=== PATIENT | female | born 1985 | race American Indian/Alaskan Native ===

== ENCOUNTER 2016-05-29 20:49 | Emergency (ER) | payer MEDICAID ==
[2016-05-29 23:39] LABS: Bacteria,Urine 2+ /HPF (Negative); Bilirubin,Urine NEG (Negative); Blood,Urine NEG (Negative); Ketones,Urine TR mg/dL (Negative); Leukocyte Esterase,Urine MOD (Negative); Mucus,Urine 3+ /HPF; Nitrite,Urine NEG (Negative); Protein,Urine <15 mg/dL mg/dL (Negative)
--- NOTE | 2016-05-30 02:11 | Emergency Department Report ---
HPI - General Chief Complaint: Upper Respiratory Infection Time Seen by Provider: 05/30/16 01:46 - HPI HPI: Patient is a 31-year-old female who presents to the ED complaining of cough congestion and generalized body aches that started this morning. Patient states that she woke up this morning with some throat pain and fever. Patient states she has taken 2 tab of Aleve earlier today that had some minor relief. Patient denies chills/abdominal pain/diarrhea/chest breath sounds chest pain/ dizziness ED Past Medical Hx - Past Medical History Previous Medical History?: No Hx Hypertension: No Hx Diabetes: No Hx Deep Vein Thrombosis: No Hx Renal Disease: No Hx Sickle Cell Disease: No Hx Seizures: No Hx Asthma: No Hx HIV: No - Social History Smoking Status: Never Smoker Substance Use Type: None - Medications Home Medications: Home Medications Medication Instructions Recorded Confirmed Last Taken Type Vit#96/Ferrous Fum/FA 02/14/13 Unknown History [ Tablet] Permethrin 5% [Acticin 5% CREAM] 60 gm TP ONCE #1 tube 03/31/13 Unknown Rx diphenhydrAMINE [Benadryl] 25 mg PO Q6HR PRN #30 capsule 03/31/13 Unknown Rx Loratadine [Claritin] 10 mg PO QDAY #10 tablet 06/19/14 Unknown Rx hydrOXYzine PAMOATE [Vistaril] 50 mg PO Q8H PRN #10 capsule 06/19/14 Unknown Rx predniSONE [Deltasone] 40 mg PO QDAY #10 tab 06/19/14 Unknown Rx Ibuprofen [Motrin] 600 mg PO Q8H PRN #30 tablet 06/21/14 Unknown Rx methOCARBAMOL [Robaxin] 500 mg PO BID #10 tab 06/21/14 Unknown Rx traMADol [Ultram] 50 mg PO Q6HR PRN #14 tablet 06/21/14 Unknown Rx Acetaminophen [Acetaminophen TAB] 650 mg PO Q8H #30 tablet 05/30/16 Unknown Rx Amoxicillin/K Clav Tab [Augmentin 1 each PO BID #14 tablet 05/30/16 Unknown Rx 875MG TAB] Pnv Cmb#21/Iron/Folic Acid 1 each PO DAILY #30 tablet 05/30/16 Unknown Rx [ Complete Caplet] guaiFENesin [Robitussin] 200 mg PO Q6HR #20 tablet 05/30/16 Unknown Rx ED Review of Systems ROS: Stated complaint: BILATERAL LEG PAIN,SHER Other details as noted in HPI Comment: All other systems reviewed and negative Constitutional: denies: chills, fever Eyes: denies: eye pain, eye discharge, vision change ENT: denies: ear pain, throat pain Respiratory: denies: cough, shortness of breath, wheezing Cardiovascular: denies: chest pain, palpitations Endocrine: no symptoms reported Gastrointestinal: denies: abdominal pain, nausea, vomiting, diarrhea, constipation, hematochezia Genitourinary: frequency. denies: urgency, dysuria, hematuria, discharge, abnormal menses Musculoskeletal: denies: back pain, joint swelling, arthralgia Skin: denies: rash, lesions Neurological: denies: headache, weakness, numbness, paresthesias, confusion, abnormal gait, vertigo Psychiatric: denies: anxiety, depression Hematological/Lymphatic: denies: easy bleeding, easy bruising Physical Exam - Physical Exam Vital Signs: Vital Signs 05/29/16 21:51 Temperature 99.0 F Pulse Rate 93 H Respiratory 18 Rate Blood Pressure 116/70 O2 Sat by Pulse 98 Oximetry Physical Exam: GENERAL: Alert and oriented x3, no apparent distress, Normal Gait, atraumatic. HEAD: Head is normocephalic and a-traumatic. EYES: Extra ocular muscles are intact. Pupils are equal, round, and reactive to light and accommodation. EARS: symetrical, atraumatic, gross auditory nml bilaterally. NOSE: Nose symetrical, Nontender,Nares appeared normal. MOUTH:Mouth is well hydrated and without lesions. Tonsils nonerythematous , moderately swollen, positive exudates. Uvula midline, Tongue not elevated. Mucous membranes are moist. Posterior pharynx positive exudate . no lesions. Patent airways. NECK: Supple. Non edematous, No carotid bruits. No lymphadenopathy or thyromegaly. LUNGS: Symetrical with respiration, No wheezing, no rales or crackles, CTAB. HEART: S1, S2 present, regular rate and rhythm without murmur, no rubs, no gallops. ABDOMEN: No organomegaly was noted,Positive bowel sounds, soft, and non- distended. . Nontender to palpation on all Quadrants, NO CVA tenderness. EXTREMITIES/MUSCULOSKELETAL: No cyanosis, clubbing, rash, lesions or edema. Full ROM bilaterally. UE/LE Pulses 2+ bilaterally. LE and UE 5+ strength bilaterally NEUROLOGIC: No focal Deficit, Cranial nerves II through XII are grossly intact. No loss of sensation, PSYCHIATRIC: Mood is congruent with affect, denies suicidal or homicidal ideations. SKIN: Warm and dry, No lesions, No ulceration or induration present. ED Course Vital Signs 05/29/16 21:51 Temperature 99.0 F Pulse Rate 93 H Respiratory 18 Rate Blood Pressure 116/70 O2 Sat by Pulse 98 Oximetry ED Medical Decision Making - Medical Decision Making 31-year-old female presents with UTI/incidental finding Urinalysis shows +2+ bacteria 3+ urine mucus elevated WBC. test positive. Rapid strep test negative. Influenza A and B negative Discussed findings with patient. Discussed [id number] symptomatic relief. Discussed referral to [facility]. Patient refused bHCG quantitative. Patient states she is not keeping the baby and does not want any further tests. Vitals signs stable. Patient is in no acute or respiratory distress. Discussed medication antibiotic, cough suppressant and Tylenol Critical care attestation.: If time is entered above; I have spent that time in minutes in the direct care of this critically ill patient, excluding procedure time. ED Disposition Clinical Impression: Incidental UTI (urinary tract infection) Qualifiers: Urinary tract infection type: acute cystitis Hematuria presence: with hematuria Qualified Code(s): N30.01 - Acute cystitis with hematuria Disposition: DISCHARGED TO HOME OR SELFCARE Is pt being admited?: No Does the pt Need Aspirin: No Condition: Stable Instructions: (ED), Urinary Tract Infection in Women (ED), Upper Respiratory Infection (ED) Prescriptions: Acetaminophen [Acetaminophen TAB] 650 mg PO Q8H #30 tablet Amoxicillin/K Clav Tab [Augmentin 875MG TAB] 1 each PO BID #14 tablet guaiFENesin [Robitussin] 200 mg PO Q6HR #20 tablet Pnv Cmb#21/Iron/Folic Acid [ Complete Caplet] 1 each PO DAILY #30 tablet Referrals: PRIMARY CARE, [Primary Care Provider] - 3-5 Days ROLY MOREIRA MD [Referring] - 3-5 Days LUCI HAND MD [Referring] - 3-5 Days [facility] [Outside] - 3-5 Days [facility] [Outside] - 3-5 Days [facility] [Outside] - 3-5 Days Time of Disposition: 02:24
[2016-05-30] MEDS ORDERED: ROBITUSSIN PO ONE (02:18)
[2016-05-30] MEDS ORDERED: TYLENOL PO ONE (02:18)
[2016-05-30] MEDS ORDERED: AUGMENTIN 875 MG PO ONE (02:19)
[2016-05-30 04:48] VITALS: BP 116/74
== END 2016-05-30 02:50 | disposition home or self-care (01) ==
LOC: ED 20:49
DX: N30.01 Acute cystitis with hematuria (principal); Z33.1 Pregnant state, incidental
CPT/HCPCS: 81001; 81025; 87116; 87400; 87430; 99283

== ENCOUNTER 2016-10-13 02:37 | Emergency (ER) | payer MEDICAID ==
[2016-10-13 03:47] VITALS: BP 113/78
[2016-10-13] MEDS ORDERED: BOOSTRIX IM ONE (05:37)
--- NOTE | 2016-10-13 05:38 | Emergency Department Report ---
- General Chief complaint: Skin/Abscess/Foreign Body Stated complaint: BOTTOM LIP SORE Time Seen by Provider: 10/13/16 05:34 Source: patient Mode of arrival: Ambulatory Limitations: No Limitations - History of Present Illness Initial comments: This is a 31-year-old female nontoxic, well nourished in appearance, no acute signs of distress but presents to the ED complaining of pain and swelling to the bottom lip. Patient stated 2 days ago she had a scab that she was taking with a pin. Patient denies any trauma. Denies pus or drainage. Denies any chest pain, shortness of breath, fever, chills, headache, nausea or vomiting. Denies any allergies or past medical history. MD complaint: other (abrasion with slight swelling to bottom lip) -: Gradual, days(s) (2) Tetanus Up to Date: no Location: face (bottom lip) Severity: mild Severity scale (0 -10): 4 Quality: aching Consistency: constant Improves with: none Worsens with: none Context: none Associated symptoms: denies other symptoms Treatments Prior to Arrival: none - Related Data Home Medications Medication Instructions Recorded Confirmed Last Taken Vit#96/Ferrous Fum/FA 02/14/13 Unknown [ Tablet] Previous Rx's Medication Instructions Recorded Last Taken Type Permethrin 5% [Acticin 5% CREAM] 60 gm TP ONCE #1 tube 03/31/13 Unknown Rx diphenhydrAMINE [Benadryl] 25 mg PO Q6HR PRN #30 capsule 03/31/13 Unknown Rx Loratadine [Claritin] 10 mg PO QDAY #10 tablet 06/19/14 Unknown Rx hydrOXYzine PAMOATE [Vistaril] 50 mg PO Q8H PRN #10 capsule 06/19/14 Unknown Rx predniSONE [Deltasone] 40 mg PO QDAY #10 tab 06/19/14 Unknown Rx Ibuprofen [Motrin] 600 mg PO Q8H PRN #30 tablet 06/21/14 Unknown Rx methOCARBAMOL [Robaxin] 500 mg PO BID #10 tab 06/21/14 Unknown Rx traMADol [Ultram] 50 mg PO Q6HR PRN #14 tablet 06/21/14 Unknown Rx Acetaminophen [Acetaminophen TAB] 650 mg PO Q8H #30 tablet 05/30/16 Unknown Rx Amoxicillin/K Clav Tab [Augmentin 1 each PO BID #14 tablet 05/30/16 Unknown Rx 875MG TAB] Pnv Cmb#21/Iron/Folic Acid 1 each PO DAILY #30 tablet 05/30/16 Unknown Rx [ Complete Caplet] guaiFENesin [Robitussin] 200 mg PO Q6HR #20 tablet 05/30/16 Unknown Rx Amoxicillin/K Clav Tab [Augmentin 1 each PO Q12HR #20 tablet 10/13/16 Unknown Rx 500 MG TAB] Allergies Allergy/AdvReac Type Severity Reaction Status Date / Time No Known Allergies Allergy Unverified 02/14/13 15:48 Abscess Boil HPI - HPI Chief Complaint: Skin/Abscess/Foreign Body Stated Complaint: BOTTOM LIP SORE Time Seen by Provider: 10/13/16 05:34 Home Medications: Home Medications Medication Instructions Recorded Confirmed Last Taken Vit#96/Ferrous Fum/FA 02/14/13 Unknown [ Tablet] Previous Rx's Medication Instructions Recorded Last Taken Type Permethrin 5% [Acticin 5% CREAM] 60 gm TP ONCE #1 tube 03/31/13 Unknown Rx diphenhydrAMINE [Benadryl] 25 mg PO Q6HR PRN #30 capsule 03/31/13 Unknown Rx Loratadine [Claritin] 10 mg PO QDAY #10 tablet 06/19/14 Unknown Rx hydrOXYzine PAMOATE [Vistaril] 50 mg PO Q8H PRN #10 capsule 06/19/14 Unknown Rx predniSONE [Deltasone] 40 mg PO QDAY #10 tab 06/19/14 Unknown Rx Ibuprofen [Motrin] 600 mg PO Q8H PRN #30 tablet 06/21/14 Unknown Rx methOCARBAMOL [Robaxin] 500 mg PO BID #10 tab 06/21/14 Unknown Rx traMADol [Ultram] 50 mg PO Q6HR PRN #14 tablet 06/21/14 Unknown Rx Acetaminophen [Acetaminophen TAB] 650 mg PO Q8H #30 tablet 05/30/16 Unknown Rx Amoxicillin/K Clav Tab [Augmentin 1 each PO BID #14 tablet 05/30/16 Unknown Rx 875MG TAB] Pnv Cmb#21/Iron/Folic Acid 1 each PO DAILY #30 tablet 05/30/16 Unknown Rx [ Complete Caplet] guaiFENesin [Robitussin] 200 mg PO Q6HR #20 tablet 05/30/16 Unknown Rx Amoxicillin/K Clav Tab [Augmentin 1 each PO Q12HR #20 tablet 10/13/16 Unknown Rx 500 MG TAB] Allergies/Adverse Reactions: Allergies Allergy/AdvReac Type Severity Reaction Status Date / Time No Known Allergies Allergy Unverified 02/14/13 15:48 ED Review of Systems ROS: Stated complaint: BOTTOM LIP SORE Other details as noted in HPI Constitutional: denies: chills, fever Eyes: denies: eye pain, eye discharge, vision change ENT: denies: ear pain, throat pain Respiratory: denies: cough, shortness of breath, wheezing Cardiovascular: denies: chest pain, palpitations Endocrine: no symptoms reported Gastrointestinal: denies: abdominal pain, nausea, diarrhea Genitourinary: denies: urgency, dysuria, discharge Musculoskeletal: denies: back pain, joint swelling, arthralgia Skin: denies: rash, lesions Neurological: denies: headache, weakness, paresthesias Psychiatric: denies: anxiety, depression Hematological/Lymphatic: denies: easy bleeding, easy bruising ED Past Medical Hx - Past Medical History Previous Medical History?: No Hx Hypertension: No Hx Diabetes: No Hx Deep Vein Thrombosis: No Hx Renal Disease: No Hx Sickle Cell Disease: No Hx Seizures: No Hx Asthma: No Hx HIV: No - Surgical History Past Surgical History?: No - Social History Smoking Status: Current Every Day Smoker Substance Use Type: None - Medications Home Medications: Home Medications Medication Instructions Recorded Confirmed Last Taken Type Vit#96/Ferrous Fum/FA 02/14/13 Unknown History [ Tablet] Permethrin 5% [Acticin 5% CREAM] 60 gm TP ONCE #1 tube 03/31/13 Unknown Rx diphenhydrAMINE [Benadryl] 25 mg PO Q6HR PRN #30 capsule 03/31/13 Unknown Rx Loratadine [Claritin] 10 mg PO QDAY #10 tablet 06/19/14 Unknown Rx hydrOXYzine PAMOATE [Vistaril] 50 mg PO Q8H PRN #10 capsule 06/19/14 Unknown Rx predniSONE [Deltasone] 40 mg PO QDAY #10 tab 06/19/14 Unknown Rx Ibuprofen [Motrin] 600 mg PO Q8H PRN #30 tablet 06/21/14 Unknown Rx methOCARBAMOL [Robaxin] 500 mg PO BID #10 tab 06/21/14 Unknown Rx traMADol [Ultram] 50 mg PO Q6HR PRN #14 tablet 06/21/14 Unknown Rx Acetaminophen [Acetaminophen TAB] 650 mg PO Q8H #30 tablet 05/30/16 Unknown Rx Amoxicillin/K Clav Tab [Augmentin 1 each PO BID #14 tablet 05/30/16 Unknown Rx 875MG TAB] Pnv Cmb#21/Iron/Folic Acid 1 each PO DAILY #30 tablet 05/30/16 Unknown Rx [ Complete Caplet] guaiFENesin [Robitussin] 200 mg PO Q6HR #20 tablet 05/30/16 Unknown Rx Amoxicillin/K Clav Tab [Augmentin 1 each PO Q12HR #20 tablet 10/13/16 Unknown Rx 500 MG TAB] ED Physical Exam - General Limitations: No Limitations General appearance: alert, in no apparent distress - Head Head exam: Present: atraumatic, normocephalic, normal inspection - Eye Eye exam: Present: normal appearance, PERRL, EOMI. Absent: scleral icterus, conjunctival injection, nystagmus, periorbital swelling, periorbital tenderness - ENT ENT exam: Present: normal exam, normal orophraynx, mucous membranes moist, TM's normal bilaterally, normal external ear exam - Neck Neck exam: Present: normal inspection, full ROM. Absent: tenderness, meningismus, lymphadenopathy, thyromegaly - Respiratory Respiratory exam: Present: normal lung sounds bilaterally. Absent: respiratory distress, wheezes, rales, rhonchi, stridor, chest wall tenderness, accessory muscle use, decreased breath sounds, prolonged expiratory - Cardiovascular Cardiovascular Exam: Present: regular rate, normal rhythm. Absent: systolic murmur, diastolic murmur, rubs, gallop - GI/Abdominal GI/Abdominal exam: Present: soft, normal bowel sounds - Rectal Rectal exam: Present: deferred - Extremities Exam Extremities exam: Present: normal inspection, full ROM, normal capillary refill. Absent: tenderness, pedal edema, joint swelling, calf tenderness - Back Exam Back exam: Present: normal inspection, full ROM. Absent: tenderness, CVA tenderness (R), CVA tenderness (L), muscle spasm, paraspinal tenderness, vertebral tenderness, rash noted - Neurological Exam Neurological exam: Present: alert, oriented X3, CN II-XII intact, normal gait, reflexes normal - Psychiatric Psychiatric exam: Present: normal affect, normal mood - Skin Skin exam: Present: warm, dry, intact, normal color, other (lesion with slight swelling her bottom lip. No posterior drainage. No fluctuance present. Nontender touch.). Absent: rash ED Course Vital Signs 10/13/16 10/13/16 03:45 03:51 Temperature 98.5 F 98.5 F Pulse Rate 67 67 Respiratory 18 18 Rate Blood Pressure 113/78 Blood Pressure 113/78 [Right] O2 Sat by Pulse 100 100 Oximetry - Reevaluation(s) Reevaluation #1: 10/13/16 05:39 Patient is able speak full sentences with no signs of distress. ED Medical Decision Making - Medical Decision Making 31-year-old female that is hemodynamically stable and examined myself. Patient was treated with Augmentin 10 days. Patient was instructed to follow-up with her primary care doctor and to observe symptoms of swelling, pus, fever, chills , headache, stiff neck, nausea, vomiting, chest pain, or shortness of breath and if the symptoms are present return to emergency room as was possible. At time time of discharge, the patient does not seem toxic or ill in appearance. No acute signs of distress noted. Patient agrees to discharge treatment plan of care. No further questions noted by the patient. Critical care attestation.: If time is entered above; I have spent that time in minutes in the direct care of this critically ill patient, excluding procedure time. ED Disposition Clinical Impression: Abrasion Disposition: DC-01 TO HOME OR SELFCARE Is pt being admited?: No Does the pt Need Aspirin: No Condition: Stable Instructions: Abrasion (ED), Amoxicillin/Clavulanate Potassium (By mouth) Additional Instructions: follow-up with your primary care doctor and observe symptoms of swelling, pus, fever, chills, headache, stiff neck, nausea, vomiting, chest pain, or shortness of breath and if the symptoms are present return to emergency room as was possible. Take full course of antibiotics prescribed. Prescriptions: Amoxicillin/K Clav Tab [Augmentin 500 MG TAB] 1 each PO Q12HR #20 tablet Referrals: PRIMARY MD MURRAY [Referring] - 3-5 Days JENIFER WEBER MD [Staff Physician] - 3-5 Days [facility] [place] [Outside] - 3-5 Days [facility] [place] [Outside] - 3-5 Days Forms: Work/School Release Form(ED)
== END 2016-10-13 05:45 | disposition home or self-care (01) ==
LOC: ED 02:37
DX: S00.511A Abrasion of lip, initial encounter (principal); F17.200 Nicotine dependence, unspecified, uncomplicated; W22.8XXA Striking against or struck by other objects, initial encounter; Y93.89 Activity, other specified; Y99.8 Other external cause status; Y92.89 Other specified places as the place of occurrence of the external cause
CPT/HCPCS: 90471; 90715

== ENCOUNTER 2016-12-25 08:23 | Emergency (ER) | payer MEDICAID ==
[2016-12-25 08:31] VITALS: BP 109/62
--- NOTE | 2016-12-25 09:49 | XRay Report ---
LEFT ANKLE THREE VIEWS: 12/25/16 08:23:00 CLINICAL: Pain. FINDINGS: The ankle mortise is intact. No fracture or dislocation. Mild medial and lateral soft tissue swelling . No soft tissue air or foreign body. IMPRESSION: Soft tissue injury and otherwise normal.
[2016-12-25] MEDS ORDERED: ULTRAM PO ONE (11:10)
--- NOTE | 2016-12-25 11:14 | Emergency Department Report ---
ED Lower Extremity HPI - General Chief Complaint: Extremity Injury, Lower Stated Complaint: LEFT ANKLE PAIN Time Seen by Provider: 12/25/16 11:09 Source: patient Mode of arrival: Ambulatory Limitations: No Limitations - History of Present Illness MD Complaint: ankle injury -: Sudden Injury: Ankle: Left Type of Injury: other (sp fall last pm while walking) Place: home Severity: moderate Improves With: nothing Worsens With: movement Context: fall Treatments Prior to Arrival: bandage - Related Data Home Medications Medication Instructions Recorded Confirmed Last Taken Vits96/Iron Fum/Folic 02/14/13 Unknown [ Tablet] Previous Rx's Medication Instructions Recorded Last Taken Type Permethrin 5% [Acticin 5% CREAM] 60 gm TP ONCE #1 tube 03/31/13 Unknown Rx diphenhydrAMINE [Benadryl] 25 mg PO Q6HR PRN #30 capsule 03/31/13 Unknown Rx Loratadine [Claritin] 10 mg PO QDAY #10 tablet 06/19/14 Unknown Rx hydrOXYzine PAMOATE [Vistaril] 50 mg PO Q8H PRN #10 capsule 06/19/14 Unknown Rx predniSONE [Deltasone] 40 mg PO QDAY #10 tab 06/19/14 Unknown Rx Ibuprofen [Motrin] 600 mg PO Q8H PRN #30 tablet 06/21/14 Unknown Rx methOCARBAMOL [Robaxin] 500 mg PO BID #10 tab 06/21/14 Unknown Rx traMADol [Ultram] 50 mg PO Q6HR PRN #14 tablet 06/21/14 Unknown Rx Acetaminophen [Acetaminophen TAB] 650 mg PO Q8H #30 tablet 05/30/16 Unknown Rx Amoxicillin/K Clav Tab [Augmentin 1 each PO BID #14 tablet 05/30/16 Unknown Rx 875MG TAB] 21/Iron Fu/Folic Acid 1 each PO DAILY #30 tablet 05/30/16 Unknown Rx [ Complete Caplet] guaiFENesin [Robitussin] 200 mg PO Q6HR #20 tablet 05/30/16 Unknown Rx Amoxicillin/K Clav Tab [Augmentin 1 each PO Q12HR #20 tablet 10/13/16 Unknown Rx 500 MG TAB] Allergies Allergy/AdvReac Type Severity Reaction Status Date / Time No Known Allergies Allergy Unverified 02/14/13 15:48 ED Review of Systems ROS: Stated complaint: LEFT ANKLE PAIN Other details as noted in HPI Comment: Unobtainable due to pts medical conditions Constitutional: no symptoms reported, see HPI. denies: chills Eyes: as per HPI. denies: eye pain ENT: as per HPI. denies: ear pain, throat pain Respiratory: no symptoms reported, see HPI. denies: cough, orthopnea Cardiovascular: as per HPI. denies: chest pain, palpitations, dyspnea on exertion, orthopnea Endocrine: no symptoms reported, see HPI. denies: excessive sweating, flushing , intolerance to cold, intolerance to heat Gastrointestinal: as per HPI. denies: abdominal pain, nausea, vomiting Genitourinary: as per HPI. denies: urgency, dysuria Musculoskeletal: as per HPI, other (l ankle pain sp fall last pm). denies: back pain Skin: as per HPI. denies: rash, lesions Neurological: as per HPI. denies: headache, weakness Psychiatric: as per HPI. denies: anxiety, depression Hematological/Lymphatic: as per HPI. denies: easy bleeding ED Past Medical Hx - Past Medical History Previous Medical History?: No Hx Hypertension: No Hx Diabetes: No Hx Deep Vein Thrombosis: No Hx Renal Disease: No Hx Sickle Cell Disease: No Hx Seizures: No Hx Asthma: No Hx HIV: No - Surgical History Past Surgical History?: No - Social History Smoking Status: Current Every Day Smoker Substance Use Type: Alcohol, Non Opiate Pain - Medications Home Medications: Home Medications Medication Instructions Recorded Confirmed Last Taken Type Vits96/Iron Fum/Folic 02/14/13 Unknown History [ Tablet] Permethrin 5% [Acticin 5% CREAM] 60 gm TP ONCE #1 tube 03/31/13 Unknown Rx diphenhydrAMINE [Benadryl] 25 mg PO Q6HR PRN #30 capsule 03/31/13 Unknown Rx Loratadine [Claritin] 10 mg PO QDAY #10 tablet 06/19/14 Unknown Rx hydrOXYzine PAMOATE [Vistaril] 50 mg PO Q8H PRN #10 capsule 06/19/14 Unknown Rx predniSONE [Deltasone] 40 mg PO QDAY #10 tab 06/19/14 Unknown Rx Ibuprofen [Motrin] 600 mg PO Q8H PRN #30 tablet 06/21/14 Unknown Rx methOCARBAMOL [Robaxin] 500 mg PO BID #10 tab 06/21/14 Unknown Rx traMADol [Ultram] 50 mg PO Q6HR PRN #14 tablet 06/21/14 Unknown Rx Acetaminophen [Acetaminophen TAB] 650 mg PO Q8H #30 tablet 05/30/16 Unknown Rx Amoxicillin/K Clav Tab [Augmentin 1 each PO BID #14 tablet 05/30/16 Unknown Rx 875MG TAB] 21/Iron Fu/Folic Acid 1 each PO DAILY #30 tablet 05/30/16 Unknown Rx [ Complete Caplet] guaiFENesin [Robitussin] 200 mg PO Q6HR #20 tablet 05/30/16 Unknown Rx Amoxicillin/K Clav Tab [Augmentin 1 each PO Q12HR #20 tablet 10/13/16 Unknown Rx 500 MG TAB] ED Physical Exam - General Limitations: No Limitations General appearance: alert - Head Head exam: Present: atraumatic - Eye Eye exam: Present: normal appearance Pupils: Present: normal accommodation - ENT ENT exam: Present: mucous membranes moist - Neck Neck exam: Present: normal inspection - Respiratory Respiratory exam: Present: normal lung sounds bilaterally - Cardiovascular Cardiovascular Exam: Present: regular rate - GI/Abdominal GI/Abdominal exam: Present: soft - Rectal Rectal exam: Present: deferred - Extremities Exam Extremities exam: Present: normal inspection - Expanded Lower Extremity Exam Left Hip exam: Present: normal inspection Upper Leg exam: Present: normal inspection Knee exam: Present: normal inspection Lower Leg exam: Present: normal inspection Ankle exam: Present: tenderness (pain internal mal area. no swelling.nv intact. xray neg). Absent: swelling, abrasion, laceration, ecchymosis, deformity, crepidus, dislocation, erythema, anterior draw sign Foot/Toe exam: Present: normal inspection Neuro vascular tendon exam: Present: no vascular compromise Gait: Positive: observed and limited by pain (limping) - Back Exam Back exam: Present: normal inspection, full ROM - Neurological Exam Neurological exam: Present: alert, oriented X3 - Psychiatric Psychiatric exam: Present: normal affect, normal mood - Skin Skin exam: Present: warm, dry, intact ED Course Vital Signs 12/25/16 08:27 Temperature 98.2 F Pulse Rate 80 Respiratory 18 Rate Blood Pressure 109/62 O2 Sat by Pulse 99 Oximetry ED Lower Extremity MDM - Radiology Data Radiology results: report reviewed, image reviewed Critical care attestation.: If time is entered above; I have spent that time in minutes in the direct care of this critically ill patient, excluding procedure time. ED Disposition Clinical Impression: Ankle sprain Disposition: TO HOME OR SELFCARE Is pt being admited?: No Does the pt Need Aspirin: No Condition: Stable Instructions: Ankle Sprain (ED) Additional Instructions: ice rest elevate avril crutches follow up ortho in 3 days if persists MOTRIN 800 MG OVER THE COUNTER WITH FOOD EVERY 8 HOURS IF YOU HAVE PAIN THIS WILL ACTUALLY TREAT THE INFLAMMATION Referrals: SONYA ARTIS MD [Staff Physician] - 3-5 Days Time of Disposition: 11:12
== END 2016-12-25 11:31 | disposition home or self-care (01) ==
LOC: ED 08:23
DX: S93.402A Sprain of unspecified ligament of left ankle, initial encounter (principal); F17.210 Nicotine dependence, cigarettes, uncomplicated; W18.30XA Fall on same level, unspecified, initial encounter; Y93.89 Activity, other specified; Y92.89 Other specified places as the place of occurrence of the external cause; Y99.8 Other external cause status
CPT/HCPCS: 99284